=== PATIENT | female | born 1945 | race African-American/Black ===

== ENCOUNTER 2024-09-13 11:02 | Emergency (ER) | payer BC, OTHER ==
[2024-09-13 11:26] VITALS: RESP 18; TEMP 98.6; BMI 29.2
[2024-09-13 12:54] LABS: ABSOLUTE IMMATURE GRANULOCYTES 0.03 x10^3/uL (0.0-0.031); BASOPHILS # 0.05 x10^3/uL (0.01-0.08); EOSINOPHIL % 1.5 % (0.7-5.8); EOSINOPHILS # 0.15 x10^3/uL (0.04-0.36); HEMATOCRIT 41.3 % (34.1-44.9); HEMOGLOBIN 13.9 g/dL (11.2-15.7); MCHC 33.7 g/dl (32.2-35.5); MEAN CELL VOLUME 86.8 fl (79.4-94.8); MEAN PLT VOLUME 11.6 fl (9.4-12.3); MONOCYTE # 1.09 x10^3/uL (0.24-0.86); MONOCYTE % 11.3 % (4.7-12.5); PLATELET COUNT 241 x10^3/uL (182-369)
[2024-09-13 13:11] LABS: ALBUMIN 3.8 g/dl (3.4-5.0); ALK PHOS 56 U/L (45-117); ANION GAP 10 mmol/L (4-13); BILIRUBIN,TOTAL 0.3 mg/dl (0.2-1); CALCIUM 9.3 mg/dl (8.5-10.1); CHLORIDE 101 mmol/L (98-107); CO2 25 mmol/L (21-32); CREATININE 0.7 mg/dl (0.6-1.3); GLUCOSE,RANDOM 129 mg/dl (74-106); MAGNESIUM 1.9 mg/dL (1.8-2.4); POTASSIUM 4.3 mmol/L (3.5-5.1); SGOT/AST 19 U/L (15-37); SGPT/ALT 16 U/L (7-52); SODIUM 136 mmol/L (136-145); TOT PROT 6.7 g/dl (6.4-8.2)
[2024-09-13 13:23] LABS: ACTIVATED PTT 29.7 SECONDS (25.2-36.5); INR 1.01 (0.83-1.09); PROTHROMBIN TIME (PATIENT) 11.2 SEC (9.7-13.0)
[2024-09-13 13:26] VITALS: BP 160/89; PULSE 82
[2024-09-13 14:24] LABS: N-TERMINAL BNP 42.3 pg/ml (5-450)
[2024-09-13] MEDS ORDERED: amLODIPine BESYLATE 5 MG TABLET (FP) ONE (14:50)
[2024-09-13] MEDS: amLODIPine BESYLATE 5 MG TABLET (FP) PO ONE (14:54)
[2024-09-13 15:09] LABS: HCV DIAGNOSTIC IN-HOUSE W/RFLX NON-REACTIVE (NONREACTIVE)
[2024-09-13 15:10] LABS: HIV INTERPRETATION NEGATIVE (NEGATIVE)
== END 2024-09-13 15:01 | disposition home or self-care (01) ==
LOC: FER 11:02
DX: R06.02 Shortness of breath (principal); R05.9 Cough, unspecified; Z76.0 Encounter for issue of repeat prescription
CPT/HCPCS: 0241U-QW; 36415; 71045-TC-FY; 80053; 83735; 83880; 84439; 84443; 84484; 85025; 85610; 85730; 86803; 87389; 93005; 99285-25